=== PATIENT | female | born 1995 | race Caucasian/White ===

== ENCOUNTER 2017-09-05 16:08 | Emergency (ER) | payer OTHER ==
[~2017-09-05] VITALS: Ht 154.9 cm; Wt 59.0 kg
[2017-09-05] MEDS ORDERED: ORTHO TRI-CYCL1 EACH PO (17:08)
[2017-09-05] MEDS ORDERED: PROMETHAZINE/C118 ML PO (18:45)
[2017-09-05] MEDS ORDERED: PREDNISONE 20 M20 MG PO (18:45)
[2017-09-05 18:52] VITALS: BP 112/72
== END 2017-09-05 18:54 | disposition home or self-care (01) ==
LOC: ER 16:08
DX: J40 Bronchitis, not specified as acute or chronic (principal); Z88.1 Allergy status to other antibiotic agents; Z91.041 Radiographic dye allergy status; Z91.040 Latex allergy status